=== PATIENT | female | born 1955 ===

== ENCOUNTER 2018-03-22 13:56 | Emergency (ER) | payer MEDICARE, MEDICAID ==
[2018-03-22 13:56] VITALS: BMI 33.1
[2018-03-22 14:12] VITALS: TEMP 98.1; O2SAT 97
[2018-03-22] MEDS ORDERED: Sodium Chloride 0.9% 1,000 ML IV STA (15:14)
--- NOTE | 2018-03-22 16:09 | ED PDOC ---
HPI: Abdomen Time Seen by Provider: 03/22/18 14:52 Chief Complaint (Nursing): Abdominal Pain Chief Complaint (Provider): Abdominal Pain History Per: Patient History/Exam Limitations: no limitations Onset/Duration Of Symptoms: Days (x5) Current Symptoms Are (Timing): Gone Now Additional Complaint(s): 62 year old female presents to the emergency department with a complaint of upper right abdominal pain and right flank pain ongoing for 5 days. She also states that she has dizziness described as "room spins" intermittently with head movements, in which, she believes began after taking an ABX that she does not recall the name for a throat infection. Patient denies any headache, chest pain, weakness, nausea, vomiting, diarrhea, fever or head injury. Patient further reports medical history of a "fatty liver". PMD: Binh Reich MD Past Medical History Reviewed: Historical Data, Nursing Documentation, Vital Signs Vital Signs: Last Vital Signs Temp 98.1 F 03/22/18 14:10 Pulse 73 03/22/18 14:10 Resp 16 03/22/18 14:10 BP Pulse Ox 97 03/22/18 16:16 - Medical History PMH: Anxiety, Arthritis, Depression, Hypercholesterolemia, Hyperlipidemia Denies: Chronic Kidney Disease - Surgical History Surgical History: - Family History Family History: States: Unknown Family Hx - Social History Current smoker - smoking cessation education provided: No Alcohol: Occasional Drugs: Denies - Home Medications Home Medications: Ambulatory Orders Medication Instructions Recorded Escitalopram [Lexapro] 20 mg PO DAILY 02/12/16 Ibuprofen [Motrin Tab] 600 mg PO Q6 PRN #15 tab 09/02/16 Dicyclomine [Bentyl] 20 mg PO TID #30 tab 12/05/16 Nitrofurantoin Macrocrystals 100 mg PO BID #14 cap 03/22/18 [Macrobid] - Allergies Allergies/Adverse Reactions: Allergies Allergy/AdvReac Type Severity Reaction Status Date / Time No Known Allergies Allergy Verified 09/02/16 10:20 Review of Systems ROS Statement: Except As Marked, All Systems Reviewed And Found Negative Constitutional: Negative for: Fever Cardiovascular: Negative for: Chest Pain Gastrointestinal: Positive for: Abdominal Pain (upper right). Negative for: Nausea, Vomiting, Diarrhea Musculoskeletal: Positive for: Back Pain (right flank) Neurological: Positive for: Dizziness. Negative for: Weakness, Headache Physical Exam - Reviewed Nursing Documentation Reviewed: Yes Vital Signs Reviewed: Yes - Physical Exam Appears: Positive for: Non-toxic, No Acute Distress Head Exam: Positive for: ATRAUMATIC, NORMAL INSPECTION, NORMOCEPHALIC Skin: Positive for: Normal Color Eye Exam: Positive for: Normal appearance, EOMI, PERRL. Negative for: Nystagmus Neck: Positive for: Normal, Supple Cardiovascular/Chest: Positive for: Regular Rate, Rhythm. Negative for: Murmur Respiratory: Positive for: Normal Breath Sounds. Negative for: Respiratory Distress Gastrointestinal/Abdominal: Positive for: Soft, Tenderness (RUQ mildly) Back: Positive for: Normal Inspection. Negative for: L CVA Tenderness, R CVA Tenderness Extremity: Positive for: Normal ROM (upper/lower) Neurologic/Psych: Positive for: Alert, Oriented. Negative for: Motor/Sensory Deficits - Laboratory Results Result Diagrams: 03/22/18 15:59 03/22/18 15:59 - ECG ECG: Positive for: Interpreted By Me ECG Rhythm: Positive for: Sinus Rhythm. Negative for: ST/T Changes Rate: 65 O2 Sat by Pulse Oximetry: 97 (RA) Pulse Ox Interpretation: Normal Medical Decision Making Medical Decision Making: Initial Impression: Abdominal pain; Dizziness Initial Plan: * CT head without contrast * EKG * CMP * Lipase * Troponin I * CBC * NS 1,000ml IV per 250mls/hr * UA * US ABD * US gallbladder and renal CT head w/o contrast: negative. CT abd/pelvis w/o contrast: 1. No radiodense urolithiasis, obstructive uropathy or perinephric reaction is appreciated bilaterally. 2. Further evaluation of the abdominal and pelvic viscera is limited given lack of contrast agents. No bowel obstruction, measure edema, ascites or free intraperitoneal gas identified. No fracture or destructive bony lesion appreciable throughout. 3. Tiny umbilical hernia identified containing only fat. Abd US: Unremarkable uterus cervix and endometrium. No peritoneal fluid collection identified in the visualized pelvis. No suspicious adnexal findings bilaterally. On re-evaluation, pt. reports feeling better. States she stopped taking the prescribed abx yesterday and has since not had any episodes of dizziness. Informed of results and agrees with plan. Scribe Attestation: Documented by Sara Orourke, acting as a scribe for Eyad Tiwari PA-C. Provider Scribe Attestation: All medical record entries made by the Scribe were at my direction and personally dictated by me. I have reviewed the chart and agree that the record accurately reflects my personal performance of the history, physical exam, medical decision making, and the department course for this patient. I have also personally directed, reviewed, and agree with the discharge instructions and disposition. Disposition - Clinical Impression Clinical Impression: UTI (urinary tract infection), Medication side effect - Patient ED Disposition Is Patient to be Admitted: No - Disposition Referrals: Judy Ignacio [Outside] Disposition: Routine/Home Disposition Time: 18:30 Condition: IMPROVED Additional Instructions: Follow up with your PMD for further evaluation. Return to ED immediately if symptoms worsen. Prescriptions: Nitrofurantoin Macrocrystals [Macrobid] 100 mg PO BID #14 cap Instructions: Urinary Tract Infection, Adult (DC), Side Effects From Medicines Forms: happn (Indonesian) Print Language: GEORGIAN
[2018-03-22 16:12] LABS: SQUAMOUS EPITHIAL 10 /hpf (0-5); URINE BACTERIA RARE (<OCC); URINE BILIRUBIN NEGATIVE (NEGATIVE); URINE BLOOD NEGATIVE (NEGATIVE); URINE CLARITY SLIGHTY-CLOUDY (Clear); URINE COLOR YELLOW (YELLOW); URINE GLUCOSE (UA) NEG (Normal); URINE LEUKOCYTE ESTERASE SMALL Leu/uL (Negative); URINE PROTEIN NEGATIVE (NEGATIVE); URINE UROBILINOGEN 0.2-1.0 mg/dL (0.2-1.0)
[2018-03-22 16:13] LABS: BASO % 0.5 % (0.0-2.0); EOS # 0.2 K/uL (0.0-0.7); EOS % 2.9 % (0.0-4.0); HEMOGLOBIN 12.9 g/dL (12.0-16.0); LYMPH % 29.8 % (20.0-40.0); MEAN CELL VOLUME 92.8 fl (81.0-99.0); MEAN CORPUSCULAR HEMOGLOBIN 31.2 pg (27.0-31.0); MEAN CORPUSCULAR HGB CONC 33.7 g/dL (33.0-37.0); MEAN PLATELET VOLUME 9.1 fl (7.2-11.7); MONO # 0.4 K/uL (0.0-0.8); MONO % 6.3 % (0.0-10.0); NEUT % 60.5 % (50.0-75.0); NRBC % 0.1 % (0.0-0.0); RBC 4.14 Mil/uL (3.80-5.20); RED CELL DISTRIBUTION WIDTH 13.6 % (11.5-14.5); WHITE BLOOD COUNT 6.6 K/uL (4.8-10.8)
[2018-03-22 16:24] LABS: ALT/SGPT 31 U/L (9-52); AST/SGOT 23 U/L (14-36); BLOOD UREA NITROGEN 15 mg/dl (7-17); CALCIUM 9.3 mg/dL (8.4-10.2); GFR AFRICAN-AMERICAN > 60; GFR NON-AFRICAN AMERICAN > 60; LIPASE 144 U/L (23-300)
--- NOTE | 2018-03-22 16:35 | US ---
HISTORY: RUQ and R flank pain COMPARISON: None. TECHNIQUE: Sonographic evaluation of the abdomen. FINDINGS: LIVER: Measures 12.8 cm. Increased echogenicity of the liver parenchyma diffusely, suggestive of hepatic steatosis. No mass. No intrahepatic bile duct dilatation. GALLBLADDER: Unremarkable. No gallstones. COMMON BILE DUCT: Measures 4.2 mm. No stones. No dilatation. PANCREAS: Not identified due to excessive bowel gas. RIGHT KIDNEY: Measures 11.1cm. Normal echogenicity. No calculus, mass, or hydronephrosis. LEFT KIDNEY: Measures 11.1cm. Normal echogenicity. No calculus, mass, or hydronephrosis. SPLEEN: Normal in size, 11.1 cm, and contour. No mass. AORTA: No aneurysmal dilatation. IVC: Unremarkable. OTHER FINDINGS: None. IMPRESSION: Hepatic steatosis suggested. Pancreas completely obscured by overlying bowel gas with remainder the examination unremarkable.
--- NOTE | 2018-03-22 17:46 | CT ---
PROCEDURE: CT HEAD WITHOUT CONTRAST. HISTORY: dizziness COMPARISON: Noncontrast head CT 05/12/2012. TECHNIQUE: Axial computed tomography images were obtained through the head/brain without intravenous contrast. Radiation dose: Total exam DLP = 784.08 mGy-cm. This CT exam was performed using one or more of the following dose reduction techniques: Automated exposure control, adjustment of the mA and/or kV according to patient size, and/or use of iterative reconstruction technique. FINDINGS: HEMORRHAGE: No intracranial hemorrhage. BRAIN: Normal oliva-white matter differentiation and density are appreciated throughout the cerebrum and cerebellum with the brainstem appearing unremarkable as well. There is no mass effect. There is no suspicious extra-axial fluid collection and the midline brain anatomy appears diffusely unremarkable. VENTRICLES: Unremarkable. No hydrocephalus. CALVARIUM: Unremarkable. PARANASAL SINUSES: Unremarkable as visualized. No significant inflammatory changes. MASTOID AIR CELLS: Unremarkable as visualized. No inflammatory changes. OTHER FINDINGS: None. IMPRESSION: Stable unremarkable noncontrast CT of the Head. Follow-up CT or MRI are available if clinically warranted.
--- NOTE | 2018-03-22 17:53 | CT ---
PROCEDURE: CT Abdomen and Pelvis without intravenous contrast HISTORY: R flank pain COMPARISON: Complete abdomen ultrasound 03/22/2018. TECHNIQUE: Helical CT of the abdomen and pelvis was performed without oral or intravenous contrast as per referring physician request. Contrast dose: None Radiation dose: Total exam DLP = 1122.53 mGy-cm. This CT exam was performed using one or more of the following dose reduction techniques: Automated exposure control, adjustment of the mA and/or kV according to patient size, and/or use of iterative reconstruction technique. FINDINGS: LOWER THORAX: Cardiomegaly. Linear atelectasis or fibrosis seen minimally at the right lung base. LIVER: Unremarkable. No gross lesion or ductal dilatation. GALLBLADDER AND BILE DUCTS: Unremarkable. PANCREAS: Unremarkable. No gross lesion or ductal dilatation. SPLEEN: Unremarkable. ADRENALS: Unremarkable. No mass. KIDNEYS AND URETERS: No radiodense urolithiasis, obstructive uropathy or perinephric reaction is appreciated bilaterally. VASCULATURE: Unremarkable. No aortic aneurysm. BOWEL: Left colonic diverticulosis without diverticulitis. No bowel obstruction evident. Stomach is collapsed. Lack oral contrast limits evaluation of the gastrointestinal tract. APPENDIX: Unremarkable. Normal appendix. PERITONEUM: A tiny umbilical hernia is identified containing only fat. No free fluid. No free air. LYMPH NODES: Unremarkable. No enlarged lymph nodes. BLADDER: Distended but otherwise unremarkable. REPRODUCTIVE: Unremarkable. BONES: No acute fracture. OTHER FINDINGS: None. IMPRESSION: 1. No radiodense urolithiasis, obstructive uropathy or perinephric reaction is appreciated bilaterally. 2. Further evaluation of the abdominal and pelvic viscera is limited given lack of contrast agents. No bowel obstruction, measure edema, ascites or free intraperitoneal gas identified. No fracture or destructive bony lesion appreciable throughout. 3. Tiny umbilical hernia identified containing only fat.
[2018-03-22 18:41] VITALS: BP 130/74; RESP 15
[2018-03-22 18:43] VITALS: PULSE 65
--- NOTE | 2018-03-23 11:08 | CARD ---
APPROVED REPORT EKG Measurement Heart [id number] <Conclusion> Normal sinus rhythm Normal ECG
== END 2018-03-22 18:41 | disposition home or self-care (01) ==
LOC: H.ER 13:56
DX: N39.0 Urinary tract infection, site not specified (principal); E78.00 Pure hypercholesterolemia, unspecified; F32.9 Major depressive disorder, single episode, unspecified; F41.9 Anxiety disorder, unspecified; K42.9 Umbilical hernia without obstruction or gangrene
CPT/HCPCS: 70450; 74176; 76700; 80053; 81003; 81025; 83690; 84484; 85025; 87086; 93005; 99284; J7030

== ENCOUNTER 2018-06-16 08:57 | Day surgery (SDC) | payer MEDICARE, MEDICAID ==
[2018-06-05 11:31] VITALS: BMI 33.8
[2018-06-16] MEDS ORDERED: Lactated Ringer's 1,000 ML IV ONE (11:06)
[2018-06-16] MEDS ORDERED: Lidocaine 1% w Epi 1:100,000 Inj ONE (14:57)
[2018-06-16] MEDS ORDERED: ceFAZolin IV 1 gm in Dextrose 1 GM/50 ML BAG IVPB ONE (14:57)
[2018-06-16] MEDS ORDERED: MethylPREDNISolone Depo 40 mg/ml Inj ONE (15:20)
[2018-06-16] MEDS ORDERED: ePHEDrine 50 mg/ml Inj ONE (15:42)
[2018-06-16] MEDS ORDERED: Lidocaine/Epi 1% 1:100000 20 ML IJ ONE ×2 (15:46)
[2018-06-16] MEDS ORDERED: EPINEPHrine 1 mg/ml (1:1000) Inj IV ONE (15:46)
[2018-06-16] MEDS ORDERED: MethylPREDNISolone Depo 40 mg/ml Inj IM ONE (15:53)
[2018-06-16] MEDS ORDERED: Bupivacaine 0.5% 50 ML IJ ONE ×2 (15:53)
[2018-06-16] MEDS ORDERED: Sodium Chloride 0.9% 10 ML IV ONE (16:03)
[2018-06-16] MEDS ORDERED: Lactated Ringer's 1,000 ML IV SCH (16:15)
[2018-06-16] MEDS ORDERED: HYDROmorphone 0.5 mg/0.5 ml ISec IVP PRN (16:15)
--- NOTE | 2018-06-16 16:18 | PCM.SURG1 ---
Surgeon's Initial Post Op Note - Surgeon's Notes Surgeon: Cate Nieves MD [employer] Member: Bala Gutierres PA-C Type of Anesthesia: General Endo Pre-Operative Diagnosis: left knee meniscus tear Operative Findings: see op report Post-Operative Diagnosis: same as pre-op dx Operation Performed: Left knee artrhoscopy, partial medial and lateral meniscectomy, synovectomy, chondroplasty Specimen/Specimens Removed: none Estimated Blood Loss: EBL {In ML}: 3 Date of Surgery/Procedure: 06/16/18 Time of Surgery/Procedure: 15:15
[2018-06-16] MEDS ORDERED: Oxycodone/Acetaminophen 5/325 mg Tab PO PRN (16:20)
[2018-06-16 16:30] VITALS: RESP 18
[2018-06-16 18:51] VITALS: BP 118/72; PULSE 68; TEMP 98.1; O2SAT 96
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
== END 2018-06-16 19:20 | disposition home or self-care (01) ==
LOC: H.OPSURG 08:57
PROVIDERS: ATTEND Orthopaedic Surgery
DX: M67.862 Other specified disorders of synovium, left knee (principal); E78.5 Hyperlipidemia, unspecified; M65.861 Other synovitis and tenosynovitis, right lower leg; M23.41 Loose body in knee, right knee; M22.41 Chondromalacia patellae, right knee
CPT/HCPCS: 29876; 29880; 29884; J0171; J0690; J1030; J3010; J7030; J7120

== ENCOUNTER 2019-02-07 08:48 | Emergency (ER) | payer MEDICARE, MEDICAID ==
[2019-02-07 08:52] VITALS: RESP 16
[2019-02-07 08:54] VITALS: BMI 35.7
[2019-02-07] MEDS ORDERED: Iohexol 240 (50 ml) PO STA (09:26)
[2019-02-07] MEDS ORDERED: Sodium Chloride 0.9% 1,000 ML IV STA (09:28)
--- NOTE | 2019-02-07 09:28 | ED PDOC ---
HPI: Abdomen Time Seen by Provider: 02/07/19 09:06 Chief Complaint (Nursing): Abdominal Pain Chief Complaint (Provider): Abdominal Pain History Per: Patient History/Exam Limitations: no limitations Onset/Duration Of Symptoms: Days Outside of [place] travel?: No Current Symptoms Are (Timing): Still Present Context: Food Severity: Moderate Pain Scale Rating Of: 6 Location Of Pain/Discomfort: LLQ Quality Of Discomfort: "Pain" Associated Symptoms: Diarrhea (non-bloody ). denies: Fever, Chills, Nausea, Vomiting, Back Pain, Chest Pain, Constipation, Urinary Symptoms Exacerbating Factors: Movement, Food Last Bowel Movement: Yesterday Additional History Per: Patient Additional Complaint(s): 63 year old female presents to the emergency room c/o left sided abdominal pain since yesterday around 2pm with associated non-bloody, soft diarrhea, several times yesterday. Patient states eating and movement aggravates the pain. Patient states she has history of diverticulitis in the past and pain is similar, usually resolves after antibiotic treatment. Patient denies fever, nausea, vomiting and urinary complaints. Past Medical History Reviewed: Historical Data, Nursing Documentation, Vital Signs Vital Signs: Last Vital Signs Temp 97.7 F 02/07/19 08:52 Pulse 65 02/07/19 08:52 Resp 16 02/07/19 08:52 BP 124/77 02/07/19 08:52 Pulse Ox 99 02/07/19 08:52 - Medical History PMH: Anxiety, Arthritis (knees,back), Depression, Gastritis, Hypercholesterolemia, Hyperlipidemia Denies: Chronic Kidney Disease - Surgical History Surgical History: - Family History Family History: States: Unknown Family Hx - Social History Alcohol: None Drugs: Denies - Home Medications Home Medications: Ambulatory Orders Medication Instructions Recorded Escitalopram [Lexapro] 20 mg PO DAILY 02/12/16 Allopurinol [Zyloprim] 100 mg PO DAILY 06/05/18 Simvastatin [Zocor] 40 mg PO DAILY 06/05/18 Aspirin [Aspirin EC] 325 mg PO DAILY 06/16/18 Docusate Sodium [Arrington' Stool 100 mg PO DAILY PRN 06/16/18 Softener Laxative] Ondansetron [Zofran Tab] 4 mg PO DAILY PRN 06/16/18 oxyCODONE/Acetaminophen [Percocet 1 tab PO BID PRN 06/16/18 5/325 mg Tab] Ciprofloxacin HCl [Cipro] 500 mg PO Q12H #20 tablet 02/07/19 Metronidazole [Flagyl] 500 mg PO Q8H #30 tablet 02/07/19 - Allergies Allergies/Adverse Reactions: Allergies Allergy/AdvReac Type Severity Reaction Status Date / Time No Known Allergies Allergy Verified 09/02/16 10:20 Review of Systems ROS Statement: Except As Marked, All Systems Reviewed And Found Negative Constitutional: Negative for: Fever, Chills, Sweats, Weakness, Malaise Cardiovascular: Negative for: Chest Pain, Palpitations, Light Headedness Respiratory: Negative for: Cough, Shortness of Breath, SOB with Exertion, Wheezing Gastrointestinal: Positive for: Abdominal Pain, Diarrhea. Negative for: Nausea, Vomiting, Constipation, Melena, Rectal Pain Genitourinary Female: Negative for: Dysuria, Hematuria Neurological: Negative for: Weakness, Dizziness Physical Exam - Reviewed Nursing Documentation Reviewed: Yes Vital Signs Reviewed: Yes - Physical Exam Appears: Positive for: Well, Non-toxic, No Acute Distress Head Exam: Positive for: ATRAUMATIC, NORMAL INSPECTION, NORMOCEPHALIC Skin: Positive for: Normal Color, Warm, DRY Eye Exam: Positive for: EOMI, Normal appearance, PERRL ENT: Positive for: Normal ENT Inspection Neck: Positive for: Normal, Painless ROM, Supple Cardiovascular/Chest: Positive for: Regular Rate, Rhythm Respiratory: Positive for: CNT, Normal Breath Sounds Gastrointestinal/Abdominal: Positive for: Normal Exam, Bowel Sounds, Soft, Tenderness (LLQ ). Negative for: Distended Back: Positive for: Normal Inspection. Negative for: L CVA Tenderness, R CVA Tenderness Extremity: Positive for: Normal ROM Neurological/Psych: Positive for: Awake, Alert, Normal Tone, Oriented - Laboratory Results Result Diagrams: 02/07/19 09:40 02/07/19 10:00 - ECG O2 Sat by Pulse Oximetry: 99 Medical Decision Making Medical Decision Making: --cbc --cmp --lipase --toradol --ct abd/pelvis --0.9ns 1 L Labs reviewed by me. Neg for elevated WBC's. UA (-). Patient eating a donut in room. Clinical findings discussed with patient. Patient educated on diet and medical treatment. Rx given Cipro and flagyl. Referral to Dr. Stanton (GI) given. Return to ED precautions given including fever, increased abdominal pain and diarrhea, unable to tolerate PO. Patient states understanding and agrees with plan. Accession No. : [id number] Patient Name / ID : [id number] Exam Date : 02/07/2019 12:11:14 ( Approved ) Study Comment : Sex / Age : F / 63Y Creator : Brock Rogers MD Dictator : Brock Rogers MD Tile Erector : Assembler 1St Shift : Brock Rogers MD Approver2 : Report Date : 02/07/2019 12:58:27 My Comment : Date of service: 02/07/2019 PROCEDURE: CT Abdomen and Pelvis with contrast HISTORY: left sided abd pain COMPARISON: Noncontrast abdomen pelvis CT 03/22/2018. TECHNIQUE: Following oral and intravenous contrast administration, a CT examination of the abdomen and pelvis was performed from the domes of the diaphragms to the symphysis pubis with reformatted datasets provided not only axial but also sagittal and coronal series.Contrast dose: Omnipaque 300, 98 cc Radiation dose: Total exam DLP = 923.46 mGy-cm. This CT exam was performed using one or more of the following dose reduction techniques: Automated exposure control, adjustment of the mA and/or kV according to patient size, and/or use of iterative reconstruction technique. FINDINGS: LOWER THORAX: Mild cardiomegaly again evident. Small hiatal hernia present. Limited bilateral basilar dependent atelectasis. LIVER: Diffuse diminished attenuation throughout the liver is appreciated without mass or intrahepatic biliary dilatation evident. Mild hepatomegaly evident. GALLBLADDER AND BILE DUCTS: Unremarkable. PANCREAS: Unremarkable. No gross lesion or ductal dilatation. SPLEEN: Unremarkable. ADRENALS: Unremarkable. No mass. KIDNEYS AND URETERS: Unremarkable. No hydronephrosis. No solid mass. VASCULATURE: Unremarkable. No aortic aneurysm. No aortic atherosclerotic calcification or mural plaque present. BOWEL: Stomach appears unremarkable. No bowel obstruction identified. Small-bowel loops are well opacified and are unremarkable as well. Extensive left colonic diverticulosis is appreciated scattered at the transverse colonic segment as w ell. Borderline pericolic reaction is in question at the proximal sigmoid colon and may reflect early diverticulitis. Thickening of the proximal and mid sigmoid ramirez appreciated with the distal segment likely thickened but difficult to evaluate due to collapse of the lumen. The bowel is otherwise unremarkable. APPENDIX: Normal appendix. PERITONEUM: Tiny umbilical hernia unchanged. No free fluid. No free air. LYMPH NODES: Unremarkable. No enlarged lymph nodes. BLADDER: Distended but thin and smooth walled urinary bladder noted. REPRODUCTIVE: Unremarkable. BONES: No acute fracture. OTHER FINDINGS: None. IMPRESSION: 1. Findings suspicious for early diverticulitis at the proximal sigmoid colon. Thickening is seen at the mid and proximal segments and possibly distal segment as well. This may be on a chronic basis. Trace pericolic reaction at the prox imal segment is question. No abscess or free air. No ascites. 2. Hepatic steatosis and mild hepatomegaly noted. Disposition - Clinical Impression Clinical Impression: Diverticulitis - Patient ED Disposition Is Patient to be Admitted: No Counseled Patient/Family Regarding: Diagnosis, Need For Followup, Rx Given - Disposition Referrals: Nic Stanton MD [Staff Provider] - Disposition: Routine/Home Disposition Time: 13:00 Condition: GOOD Prescriptions: Ciprofloxacin HCl [Cipro] 500 mg PO Q12H #20 tablet Metronidazole [Flagyl] 500 mg PO Q8H #30 tablet Instructions: Diverticulitis (DC) Forms: [employer] (Syriac) Print Language: MOSOTHO - POA Present On Arrival: None
[2019-02-07 10:28] LABS: BASO % 0.6 % (0.0-2.0); EOS # 0.3 K/uL (0.0-0.7); EOS % 3.6 % (0.0-4.0); LYMPH # 1.6 K/uL (1.0-4.3); LYMPH % 22.4 % (20.0-40.0); MEAN CELL VOLUME 92.1 fl (81.0-99.0); MEAN CORPUSCULAR HGB CONC 33.7 g/dL (33.0-37.0); MEAN PLATELET VOLUME 8.8 fl (7.2-11.7); MONO # 0.5 K/uL (0.0-0.8); MONO % 7.1 % (0.0-10.0); NEUT # 4.6 K/uL (1.8-7.0); NEUT % 66.3 % (50.0-75.0); RBC 4.19 Mil/uL (3.80-5.20); RED CELL DISTRIBUTION WIDTH 13.9 % (11.5-14.5)
[2019-02-07 10:44] LABS: ALB/GLOB RATIO 1.2 (1.0-2.1); ALBUMIN 4.3 g/dL (3.5-5.0); ALT/SGPT 29 U/L (9-52); AST/SGOT 31 U/L (14-36); BLOOD UREA NITROGEN 21 mg/dl (7-17); CALCIUM 9.3 mg/dL (8.4-10.2); GFR NON-AFRICAN AMERICAN > 60; LIPASE 124 U/L (23-300)
[2019-02-07 10:49] LABS: SQUAMOUS EPITHIAL 3 /hpf (0-5); URINE BACTERIA RARE (<OCC); URINE BILIRUBIN NEGATIVE (NEGATIVE); URINE BLOOD NEGATIVE (NEGATIVE); URINE CLARITY SLIGHTY-CLOUDY (Clear); URINE COLOR YELLOW (YELLOW); URINE GLUCOSE (UA) NEG (NEGATIVE); URINE LEUKOCYTE ESTERASE NEG Leu/uL (Negative); URINE PROTEIN NEGATIVE (NEGATIVE); URINE UROBILINOGEN 0.2-1.0 mg/dL (0.2-1.0)
--- NOTE | 2019-02-07 13:02 | CT ---
Date of service: 02/07/2019 PROCEDURE: CT Abdomen and Pelvis with contrast HISTORY: left sided abd pain COMPARISON: Noncontrast abdomen pelvis CT 03/22/2018. TECHNIQUE: Following oral and intravenous contrast administration, a CT examination of the abdomen and pelvis was performed from the domes of the diaphragms to the symphysis pubis with reformatted datasets provided not only axial but also sagittal and coronal series.Contrast dose: Omnipaque 300, 98 cc Radiation dose: Total exam DLP = 923.46 mGy-cm. This CT exam was performed using one or more of the following dose reduction techniques: Automated exposure control, adjustment of the mA and/or kV according to patient size, and/or use of iterative reconstruction technique. FINDINGS: LOWER THORAX: Mild cardiomegaly again evident. Small hiatal hernia present. Limited bilateral basilar dependent atelectasis. LIVER: Diffuse diminished attenuation throughout the liver is appreciated without mass or intrahepatic biliary dilatation evident. Mild hepatomegaly evident. GALLBLADDER AND BILE DUCTS: Unremarkable. PANCREAS: Unremarkable. No gross lesion or ductal dilatation. SPLEEN: Unremarkable. ADRENALS: Unremarkable. No mass. KIDNEYS AND URETERS: Unremarkable. No hydronephrosis. No solid mass. VASCULATURE: Unremarkable. No aortic aneurysm. No aortic atherosclerotic calcification or mural plaque present. BOWEL: Stomach appears unremarkable. No bowel obstruction identified. Small-bowel loops are well opacified and are unremarkable as well. Extensive left colonic diverticulosis is appreciated scattered at the transverse colonic segment as well. Borderline pericolic reaction is in question at the proximal sigmoid colon and may reflect early diverticulitis. Thickening of the proximal and mid sigmoid ramirez appreciated with the distal segment likely thickened but difficult to evaluate due to collapse of the lumen. The bowel is otherwise unremarkable. APPENDIX: Normal appendix. PERITONEUM: Tiny umbilical hernia unchanged. No free fluid. No free air. LYMPH NODES: Unremarkable. No enlarged lymph nodes. BLADDER: Distended but thin and smooth walled urinary bladder noted. REPRODUCTIVE: Unremarkable. BONES: No acute fracture. OTHER FINDINGS: None. IMPRESSION: 1. Findings suspicious for early diverticulitis at the proximal sigmoid colon. Thickening is seen at the mid and proximal segments and possibly distal segment as well. This may be on a chronic basis. Trace pericolic reaction at the proximal segment is question. No abscess or free air. No ascites. 2. Hepatic steatosis and mild hepatomegaly noted.
[2019-02-07 13:27] VITALS: BP 144/93; PULSE 55; TEMP 97.9; O2SAT 100
== END 2019-02-07 13:25 | disposition home or self-care (01) ==
LOC: H.ER 08:48
DX: K57.92 Diverticulitis of intestine, part unspecified, without perforation or abscess without bleeding (principal); Z86.59 Personal history of other mental and behavioral disorders
CPT/HCPCS: 74177; 80053; 81003; 83605; 83690; 85025; 96361; 96374; 99285; J1885; J7030; Q9966